=== PATIENT | female | born 1970 | race Caucasian/White ===

== ENCOUNTER 2021-01-18 15:33 | Emergency (ER) | payer OTHER ==
[~2021-01-18] VITALS: Ht 172.7 cm; Wt 71.4 kg
[2021-01-18 15:34] VITALS: BP 133/76
[2021-01-18] MEDS ORDERED: CELE20TA PO (16:14)
[2021-01-18] MEDS ORDERED: PROTPAK PO (16:14)
[2021-01-18] MEDS ORDERED: SUCRALFATE 1 GM TAB PO ONE (19:45)
[2021-01-18] MEDS ORDERED: MORPHINE 4 MG/ML 1ML VIAL/SYRINGE (J2270) IV ONE ×2 (19:45→22:30)
[2021-01-18] MEDS ORDERED: GI COCKTAIL 50ML BTL(HYOSCYAMINE/MAALOX/LIDOCAINE VISCOUS)(1:3:1) PO ONE ×2 (19:45→22:55)
[2021-01-18] MEDS ORDERED: NS 1,000 ML IV ONE (19:45)
[2021-01-18] MEDS ORDERED: ONDANSETRON 4MG/2ML VIAL IV ONE (19:45)
[2021-01-18] MEDS ORDERED: GASTROGRAFIN SOLUTION 30ML (Q9963) As Ordered ONE (20:07)
[2021-01-18 20:38] LABS: BASO # 0.1 10^3/uL (0.0-0.2); BASO % 0.6 % (0.0-1.0); EOS # 0.5 10^3/uL (0.0-0.5); EOS % 4.1 % (0.0-3.0); HEMATOCRIT 42.1 % (36.0-47.0); HEMOGLOBIN 13.5 g/dl (12.0-15.5); LYMPH # 4.5 10^3/uL (1.5-5.0); LYMPH % 40.6 % (24.0-44.0); MEAN CORPUSCULAR HEMOGLOBIN 29.7 pg (27.0-33.0); MEAN CORPUSCULAR HGB CONC 32.1 g/dl (32.0-36.5); MEAN CORPUSCULAR VOLUME 92.7 fl (80.0-96.0); MONO # 0.7 10^3/uL (0.0-0.8); MONO % 5.9 % (2.0-8.0); NEUTROPHILS # 5.4 10^3/uL (1.5-8.5); NEUTROPHILS % 48.4 % (36.0-66.0); PLATELET COUNT, AUTOMATED 272 10^3/uL (150-450); RED BLOOD COUNT 4.54 10^6/uL (4.00-5.40); WHITE BLOOD COUNT 11.1 10^3/uL (4.0-10.0)
[2021-01-18 21:03] LABS: ALBUMIN 4.2 GM/DL (3.2-5.2); BILIRUBIN,DIRECT 0.1 MG/DL (0.0-0.2); BILIRUBIN,TOTAL 0.5 MG/DL (0.2-1.0); TOTAL PROTEIN 7.2 GM/DL (6.4-8.2)
[2021-01-18] MEDS ORDERED: ISOVUE-370 76% 100ML VIAL As Ordered ONE (22:03)
--- NOTE | 2021-01-18 22:39 | REPVR ---
PROCEDURE INFORMATION: Exam: CT Abdomen And Pelvis With Contrast Exam date and time: 01/18/2021 10:09 PM Age: 50 years old Clinical indication: Abdominal pain; Epigastric; Prior surgery; Additional info: Epigastric pain, dark stools, HX gastric ulcer TECHNIQUE: Imaging protocol: Computed tomography of the abdomen and pelvis with contrast. Axial, coronal and sagittal reformatted images were created and reviewed. Radiation optimization: All CT scans at this facility use at least one of these dose optimization techniques: automated exposure control; mA and/or kV adjustment per patient size (includes targeted exams where dose is matched to clinical indication); or iterative reconstruction. Contrast material: ISOVUE 370; Contrast volume: 100 ml; Contrast route: INTRAVENOUS (IV); COMPARISON: No relevant prior studies available. FINDINGS: Heart: Reflux of contrast into the intrahepatic veins and IVC, suggesting right heart failure. Liver: Unremarkable. Gallbladder and bile ducts: No radiodense gallstones. No biliary ductal dilatation. Pancreas: Unremarkable. Spleen: Unremarkable. Adrenal glands: Normal. No mass. Kidneys and ureters: No mass. No radiodense calculi. No hydronephrosis. Stomach and bowel: No bowel wall thickening. No obstruction. No pneumatosis. Appendix: Normal. Intraperitoneal space: No free fluid. No organized fluid collection. No free air. Vasculature: Mild atherosclerotic disease. No aneurysm or dissection. Lymph nodes: No pathologically enlarged lymph nodes. Urinary bladder: Unremarkable as visualized. Reproductive: Unremarkable. Bones/joints: No acute osseous abnormality. Degenerative changes. Grade 1 anterolisthesis of L4 on L5. Status post L5-S1 posterior fusion. Soft tissues: Unremarkable. IMPRESSION: 1. No CT evidence of acute intra-abdominal or pelvic pathology. 2. Additional findings, as above. Electronically signed by: Alessandro Funes On 01/18/2021 22:39:27 PM
[2021-01-18] MEDS ORDERED: CARA1TAB6 PO (23:25)
[2021-01-18] MEDS ORDERED: FAMO20TA PO (23:27)
== END 2021-01-18 23:34 | disposition home or self-care (01) ==
LOC: EDBD 15:33 → M ED 15:33
DX: R10.13 Epigastric pain (principal); R11.2 Nausea with vomiting, unspecified; K21.9 Gastro-esophageal reflux disease without esophagitis; Z79.899 Other long term (current) drug therapy; Z88.0 Allergy status to penicillin; Z88.1 Allergy status to other antibiotic agents; Z87.19 Personal history of other diseases of the digestive system; Z98.890 Other specified postprocedural states
CPT/HCPCS: 74177; 80047; 80076; 83690; 85025; 87505; 96374; 96375; 96376; 99283; J2270; J2405; Q9967

== ENCOUNTER → 2022-07-26 | Outpatient (REF) ==
[~2022-07-26] MED LIST: CARA1TAB6 PO; CELE20TA PO; FAMO20TA PO; PROTPAK PO
== END ==
LOC: M EMP 12:10
PROVIDERS: ATTEND Family Medicine
DX: Z11.52 Encounter for screening for COVID-19 (principal)

== ENCOUNTER → 2022-09-17 | Outpatient (REF) | payer BC | LOC: M LAB REF 08:23 | PROVIDERS: ATTEND Internal Medicine Endocrinology, Diabetes & Metabolism | DX: E04.2 Nontoxic multinodular goiter (principal) ==